=== PATIENT | female | born 1955 | race Caucasian/White ===

== ENCOUNTER → 2016-10-28 | Outpatient (CLI) | payer BC ==
[~2016-10-28] MED LIST: FISH OIL500 MG PO; METOPROLOL SUCC50 MG PO; SINGULAIR PO; ZOLOFT50 MG PO; ZYRTEC10 M1 PO
[2016-10-28 08:05] LABS: CHOLESTEROL 238 mg/dL (0-200); HDL CHOLESTEROL 38 mg/dL (35-95); LDL CHOLESTEROL 159 mg/dL (-130); LDL/HDL RATIO 4 RATIO (0-4); TRIGLYCERIDES 204 mg/dL (10-160)
== END | disposition home or self-care (01) ==
LOC: CLAB 06:28
PROVIDERS: Family Medicine
DX: E78.5 Hyperlipidemia, unspecified (principal)
CPT/HCPCS: 36415; 80061